=== PATIENT | female | born 1985 | race Caucasian/White ===

== ENCOUNTER 2022-03-12 12:13 | Outpatient (REF) | payer BC, SELFPAY ==
[2022-03-12 15:00] LABS: Calculated LDL 95 mg/dL (<100); Cholesterol 178 mg/dL (<200); Glucose 85 mg/dL (74-106); HDL Cholesterol 66 mg/dL (40-60); Triglyceride 85 mg/dL (<150)
[2022-03-13 09:44] LABS: Hepatitis C Ab w Rflx HCV PCR Negative (Negative)
[2022-03-13 09:58] LABS: HIV-1/2 Ag & Ab Screen Negative (Negative)
== END 2022-03-12 12:14 | disposition home or self-care (01) ==
LOC: NCHCN 12:13
PROVIDERS: Visit Provider Nurse Practitioner Family
DX: R51.9 Headache, unspecified (principal); Z13.1 Encounter for screening for diabetes mellitus; Z13.220 Encounter for screening for lipoid disorders; Z11.4 Encounter for screening for human immunodeficiency virus [HIV]; Z11.59 Encounter for screening for other viral diseases
CPT/HCPCS: 80061; 82947; 86803; 87389

== ENCOUNTER 2023-07-20 15:22 | Outpatient (REF) | payer BC, SELFPAY ==
--- NOTE | 2023-07-20 14:30 | PAPFT_PTH ---
PATIENT: Zoila Francisco [facility] U[facility][id number] AGE/SX: 38/F ROOM: RE07/20/[address]: Camille Lockwood : 1985 BED: DIS: 07/20/2023 SPEC #: [id number] RECD: 07/21/23 12:52 STATUS: SHYLA RERaphael #: [id number] SACHIN: 07/20/23 14:[address]: Camille Lockwood DEPT: [facility] Cytology RECD BY: Tiffany Mace Tissues: 1 - CX/ENDOCX FOR PAP SMEARS Procedures: PAP THIN PREP/[facility] Screening HPV DNA PROBE Comments: (CHLAMYDIA/GC)
[2023-07-23 12:46] LABS: Chlamydia Result Negative (Negative); GC Result Negative (Negative)
== END 2023-07-20 15:23 | disposition home or self-care (01) ==
LOC: NCHCN 15:22
PROVIDERS: PCP Nurse Practitioner Family; Visit Provider Nurse Practitioner Family
DX: Z12.4 Encounter for screening for malignant neoplasm of cervix (principal); Z11.3 Encounter for screening for infections with a predominantly sexual mode of transmission
CPT/HCPCS: 87491; 87591; 88142; 87624